=== PATIENT | male | born 1960 | race Caucasian/White ===

== ENCOUNTER 2018-10-29 11:42 | Day surgery (SDC) | payer BC ==
[2018-10-26 15:39] VITALS: BMI 39.0
[~2018-10-29 11:42] MED LIST: ceFAZolin SODIUM 1 GM VIAL IVPB ONE
[2018-10-29] MEDS ORDERED: MIDAZOLAM HCL 2 MG/2 ML SINGLE DOSE VIAL ONE ×2 (12:57)
[2018-10-29] MEDS ORDERED: PROPOFOL 20 ML ONE (12:58)
[2018-10-29] MEDS ORDERED: BUPIVACAINE HCL/PF 0.5% (5MG/ML) 10 ML VIAL ONE (13:10)
[2018-10-29] MEDS ORDERED: LIDOCAINE HCL 1%, 10 MG/ML (20ML VIAL) ONE (13:10)
[2018-10-29] MEDS ORDERED: ceFAZolin SODIUM 1 GM VIAL IVPB ONE (13:28)
[2018-10-29] MEDS ORDERED: LIDOCAINE HCL 1%, 10 MG/ML (20ML VIAL) INF ONE (13:31)
[2018-10-29] MEDS ORDERED: BUPIVACAINE HCL/PF (5 MG/ML) 30 ML VIAL IJ ONE (13:31)
[2018-10-29 15:12] VITALS: BP 128/78; PULSE 78; TEMP 97.9
--- NOTE | 2018-10-29 23:16 | OP ---
DATE OF OPERATION: 10/29/2018 PREOPERATIVE DIAGNOSIS: Exposed wound left groin with history of bleeding status post tibial bypass in situ and infected wound. POSTOPERATIVE DIAGNOSIS: Exposed wound left groin with history of bleeding status post tibial bypass in situ and infected wound. PROCEDURE: Debridement and closure of the skin after Pulsavac irrigation. SURGEON: Davis Low M.D. ANESTHESIA: Local sedation. DESCRIPTION OF PROCEDURE: Patient had successful femoral-popliteal at distal popliteal, the tibial bypass was done in situ, and moderately heavy and a smoker, had groin infection which has been treated well as an outpatient, but 48 hours back the patient noticed significant oozing from the groin, bright red, so with the suspicion of infection going to the anastomosis or to the bypass segment, the patient was brought in the operating room for a secondary closure. So the left groin was prepped and draped in usual manner. Intravenous antibiotics were given. Local with Marcaine was injected, and the skin was freshened on both sides with the knife, and on the subcutaneous tissue another debrided with curet and following which the pulse lavage was used. The wound was thoroughly irrigated and cleaned. The subcutaneous tissue was closed with 3-0 Vicryl, the skin with 3-0 nylon, and patient went to recovery room in stable condition. DAVIS LOW M.D. [id number]
== END 2018-10-29 14:55 | disposition home or self-care (01) ==
LOC: JASU-SURG 11:42
PROVIDERS: ATTEND Surgery Vascular Surgery
PROC: 0JBC0ZZ Excision of Pelvic Region Subcutaneous Tissue and Fascia, Open Approach (ICD-10-PCS; principal; 2018-10-29 13:00)
DX: S31.104A Unspecified open wound of abdominal wall, left lower quadrant without penetration into peritoneal cavity, initial encounter (principal)
CPT/HCPCS: 82962